=== PATIENT | male | born 1950 | race Caucasian/White ===

== ENCOUNTER 2016-12-17 09:43 | Outpatient (CLI) | payer MEDICARE, OTHER | END 2016-12-17 09:44 | disposition home or self-care (01) | DX: Z00.00 Encounter for general adult medical examination without abnormal findings (principal); R05 Cough; R76.11 Nonspecific reaction to tuberculin skin test without active tuberculosis; R07.89 Other chest pain ==

== ENCOUNTER 2016-12-31 12:34 | Outpatient (CLI) | payer MEDICARE, OTHER | END 2016-12-31 12:35 | disposition home or self-care (01) | DX: R06.00 Dyspnea, unspecified (principal) ==

== ENCOUNTER 2017-01-01 10:25 | Outpatient (CLI) | payer MEDICARE, OTHER ==
--- NOTE | 2017-01-01 14:26 | XRAY Report ---
TWO-VIEW CHEST: 01/01/2017 CLINICAL INDICATION: Dyspnea. FINDINGS: Frontal and lateral views of the chest are compared to previous frontal view of 07/02/2016 . The cardiac silhouette is within normal limits. The lungs are clear. No effusion or pneumothorax is present. IMPRESSION: NORMAL CHEST. JOB #: [id number] EXT JOB #:[id number]
== END 2017-01-01 10:26 | disposition home or self-care (01) ==
LOC: DI.S 10:25
PROVIDERS: ATTEND Internal Medicine
DX: R06.00 Dyspnea, unspecified (principal)
CPT/HCPCS: 71020

== ENCOUNTER 2017-01-21 13:20 | Outpatient (CLI) | payer MEDICARE, OTHER | END 2017-01-21 13:21 | disposition home or self-care (01) | LOC: RT 13:20 | PROVIDERS: ATTEND Internal Medicine | DX: R06.00 Dyspnea, unspecified (principal) | CPT/HCPCS: 94010; 94729 ==

== ENCOUNTER 2017-10-18 08:36 | Outpatient (CLI) | payer MEDICARE, OTHER ==
[2017-10-18 12:04] LABS: BASOPHILS # (AUTO) 0.1 10^3/uL (0.0-0.1); BASOPHILS % (AUTO) 0.9 %; EOSINOPHILS # (AUTO) 0.1 10^3/uL (0.0-0.7); EOSINOPHILS % (AUTO) 1.3 %; HGB - HEMOGLOBIN 14.2 g/dL (14.0-18.0); LYMPHOCYTES % (AUTO) 32.1 %; MEAN CORPUSCULAR HEMOGLOBIN 31.7 pg (27.0-31.0); MEAN CORPUSCULAR VOLUME 93.3 fL (80.0-94.0); MEAN PLATELET VOLUME 8.8 fL (7.4-11.4); MONOCYTES # (AUTO) 0.6 10^3/uL (0.0-1.0); MONOCYTES % (AUTO) 10.2 %; NEUTROPHILS # (AUTO) 3.4 10^3/uL (1.5-6.6); NEUTROPHILS % (AUTO) 55.5 %; PLT - PLATELET COUNT 262 10^3/uL (130-450); RED BLOOD COUNT 4.49 10^6/uL (4.70-6.10); RED CELL DISTRIBUTION WIDTH 13.2 % (12.0-15.0); WHITE BLOOD COUNT 6.1 x10^3/uL (4.8-10.8)
[2017-10-18 12:11] LABS: BUN - BLOOD UREA NITROGEN 21 mg/dL (6-20); CALCIUM 8.9 mg/dL (8.5-10.3); CARBON DIOXIDE - CO2 28 mmol/L (21-32); CHLORIDE 105 mmol/L (101-111); CHOL/HDL RATIO 3.6 (<5.0); CHOLESTEROL 173 mg/dL; CREATININE 0.9 mg/dL (0.6-1.2); GFR - MDRD 84 (>89); GLUCOSE 92 mg/dL (70-100); HDL CHOLESTEROL 48 mg/dL; LDL CHOLESTEROL,CALCULATED 113 mg/dL; LDL/HDL RATIO 2.4 (<3.6); SODIUM 140 mmol/L (135-145); VLDL CHOLESTEROL 12 mg/dL
[2017-10-19 14:53] LABS: HEPATITIS C ANTIBODY NON-REACTIVE (NON-REACTIVE)
== END 2017-10-18 08:37 | disposition home or self-care (01) ==
LOC: LAB.F 08:36
PROVIDERS: ATTEND Internal Medicine
DX: N40.1 Benign prostatic hyperplasia with lower urinary tract symptoms (principal); K21.9 Gastro-esophageal reflux disease without esophagitis; Z13.220 Encounter for screening for lipoid disorders; Z11.59 Encounter for screening for other viral diseases
CPT/HCPCS: 36415; 80048; 80061; 83721; 84153; 85025; 86803

== ENCOUNTER 2018-10-12 08:38 | Outpatient (CLI) | payer MEDICARE, OTHER ==
[2018-10-12 10:53] LABS: HGB - HEMOGLOBIN 13.8 g/dL (14.0-18.0); MEAN CORPUSCULAR HEMOGLOBIN 31.9 pg (27.0-31.0); MEAN CORPUSCULAR HGB CONC 34.1 g/dL (32.0-36.0); MEAN CORPUSCULAR VOLUME 93.4 fL (80.0-94.0); MEAN PLATELET VOLUME 8.7 fL (7.4-11.4); RED BLOOD COUNT 4.33 10^6/uL (4.70-6.10); RED CELL DISTRIBUTION WIDTH 13.1 % (12.0-15.0); WHITE BLOOD COUNT 7.3 x10^3/uL (4.8-10.8)
[2018-10-12 11:28] LABS: ALBUMIN 3.9 g/dL (3.2-5.5); ALBUMIN/GLOBULIN RATIO 1.4 (1.0-2.2); ALKALINE PHOSPHATASE 92 IU/L (42-121); ALT ALANINE AMINOTRANSFERASE 23 IU/L (10-60); AST ASPARTATE AMINOTRANSFERASE 23 IU/L (10-42); BILIRUBIN,TOTAL 1.1 mg/dL (0.2-1.0); BUN - BLOOD UREA NITROGEN 24 mg/dL (6-20); CALCIUM 8.7 mg/dL (8.5-10.3); CARBON DIOXIDE - CO2 26 mmol/L (21-32); CHLORIDE 105 mmol/L (101-111); CHOLESTEROL 167 mg/dL; CREATININE 0.7 mg/dL (0.6-1.2); GFR - MDRD 112 (>89); GLUCOSE 89 mg/dL (70-100); HDL CHOLESTEROL 55 mg/dL; LDL CHOLESTEROL,CALCULATED 92 mg/dL; LDL/HDL RATIO 1.7 (<3.6); SODIUM 138 mmol/L (135-145); TOTAL PROTEIN 6.6 g/dL (6.7-8.2); VLDL CHOLESTEROL 20 mg/dL
[2018-10-12 11:51] LABS: HEMOGLOBIN A1C 0.56 g/dL; HEMOGLOBIN A1C % 5.6 % (4.6-6.2)
== END 2018-10-12 08:39 | disposition home or self-care (01) ==
LOC: LAB.F 08:38
PROVIDERS: ATTEND Internal Medicine
DX: Z00.00 Encounter for general adult medical examination without abnormal findings (principal); N40.1 Benign prostatic hyperplasia with lower urinary tract symptoms; Z12.5 Encounter for screening for malignant neoplasm of prostate; N13.8 Other obstructive and reflux uropathy
CPT/HCPCS: 36415; 80053; 80061; 83036; 85027; G0103; 83721; 84153

== ENCOUNTER 2020-05-22 15:52 | Outpatient (CLI) | payer MEDICARE, OTHER ==
--- NOTE | 2020-05-22 16:15 | XRAY Report ---
PROCEDURE: Hand 2 View LT INDICATIONS: ABSCESS, HAND, LEFT TECHNIQUE: 2 views of the hand(s) acquired. COMPARISON: None FINDINGS: Bones: No fractures or dislocations. No suspicious bony lesions. Soft tissues: No suspicious soft tissue calcifications. IMPRESSION: No gas within the soft tissues is found, no foreign body or underlying osteomyelitis is seen. Degener ative change is noted to be moderately severe to severe at the base of the first metacarpal. Reviewed by: Beni Stephenson MD on 05/22/2020 4:14 PM PDT Approved by: Beni Stephenson MD on 05/22/2020 4:14 PM PDT Station ID: [id number]
== END 2020-05-22 15:53 | disposition home or self-care (01) ==
LOC: DI.S 15:52
PROVIDERS: ATTEND Internal Medicine
DX: M18.12 Unilateral primary osteoarthritis of first carpometacarpal joint, left hand (principal)

== ENCOUNTER 2020-11-13 08:05 | Outpatient (CLI) | payer MEDICARE, OTHER ==
[2020-11-13 14:29] LABS: BASOPHILS % (AUTO) 0.6 %; EOSINOPHILS # (AUTO) 0.1 10^3/uL (0.0-0.7); EOSINOPHILS % (AUTO) 1.8 %; HCT - HEMATOCRIT 41.6 % (42.0-52.0); LYMPHOCYTES # (AUTO) 2.3 10^3/uL (1.5-3.5); MEAN CORPUSCULAR HGB CONC 33.7 g/dL (32.0-36.0); MEAN CORPUSCULAR VOLUME 95.2 fL (80.0-94.0); MEAN PLATELET VOLUME 10.3 fL (7.4-11.4); MONOCYTES # (AUTO) 0.8 10^3/uL (0.0-1.0); MONOCYTES % (AUTO) 11.7 %; NEUTROPHILS # (AUTO) 3.9 10^3/uL (1.5-6.6); NEUTROPHILS % (AUTO) 53.6 %; PLT - PLATELET COUNT 270 10^3/uL (130-450); RED BLOOD COUNT 4.37 10^6/uL (4.70-6.10); RED CELL DISTRIBUTION WIDTH 12.4 % (12.0-15.0); WHITE BLOOD COUNT 7.2 x10^3/uL (4.8-10.8)
[2020-11-13 14:48] LABS: ALBUMIN 4.1 g/dL (3.2-5.5); ALBUMIN/GLOBULIN RATIO 1.4 (1.0-2.2); ALKALINE PHOSPHATASE 87 IU/L (42-121); ALT ALANINE AMINOTRANSFERASE 22 IU/L (10-60); AST ASPARTATE AMINOTRANSFERASE 21 IU/L (10-42); BUN - BLOOD UREA NITROGEN 19 mg/dL (6-20); CALCIUM 9.5 mg/dL (8.5-10.3); CARBON DIOXIDE - CO2 26 mmol/L (21-32); CHLORIDE 108 mmol/L (101-111); CHOL/HDL RATIO 3.8 (<5.0); CHOLESTEROL 184 mg/dL; CREATININE 0.8 mg/dL (0.6-1.2); GFR - MDRD 96 (>89); GLUCOSE 92 mg/dL (70-100); HDL CHOLESTEROL 49 mg/dL; LDL CHOLESTEROL,CALCULATED 120 mg/dL; LDL/HDL RATIO 2.4 (<3.6); POTASSIUM 3.8 mmol/L (3.5-5.0); SODIUM 142 mmol/L (135-145); TRIGLYCERIDES 75 mg/dL; VLDL CHOLESTEROL 15 mg/dL
== END 2020-11-13 08:06 | disposition home or self-care (01) ==
LOC: LAB.S 08:05
PROVIDERS: ATTEND Internal Medicine
DX: Z79.899 Other long term (current) drug therapy (principal); Z13.220 Encounter for screening for lipoid disorders; Z12.5 Encounter for screening for malignant neoplasm of prostate
CPT/HCPCS: 36415; 80053; 80061; 85025; G0103; 83721; 84153

== ENCOUNTER 2021-01-10 07:43 | Outpatient (CLI) | payer MEDICARE, OTHER ==
--- NOTE | 2021-01-10 09:15 | CARDIAC PROCEDURE NOTE ---
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 I auscultated his precordium. He has a 2/6 systolic murmur over the pulmonic area and a 2/6 systolic murmur at the apex. No Doppler was ordered with this Echo exam. Cardiac Risk Factors: Male gender, HTN, family Hx of CVAs. Type of Stress Test: ETT with Echocardiography Procedure: After signing informed consent, the patient underwent a Geoff-protocol treadmill stress test with Echocardiography imaging pre- and post- exercise. Resting heart rate: 60 Peak HR: 138 (91% predicted maximum heart rate for age). Resting blood pressure: 153/73 Peak BP: 192/72 The patient exercised for 6 minutes and 19 seconds on a Geoff-protocol treadmill stress test. He achieved a peak heart rate of 138 (91% p.m. HR), and 7.51 METS. The patient had no chest pain with exercise. The patient reported moderate shortness of breath. His oxygen saturation was 92% at the lowest during exercise and 98% at rest, on room air. The patient reported his perceived exertion at 17/20 at peak, on the Sherry scale. Resting EKG: Normal sinus rhythm, rate 60, left atrial and right atrial enlargement, somewhat vertical QRS axis. EKG at peak: Marked right axis deviation develops, rare PACs occurred with exercise and upsloping ST segment depressions are seen in leads II, III, aVF and V3 - V6. Summary: 1) Abnormal resting EKG. 2) Fair exercise tolerance and no oxygen desaturation with exercise. 3) Nonspecific EKG changes develop to suggest ischemia. 4) New right axis deviation develops on EKG with exertion (this suggests right heart overload). 5) Echo images were reported separately and showed: LVH, normal LV wall motion at rest with EF 70% and normal hyperdynamic function after stress, the RV is dilated, especially at the RV apex, with fairly preserved RV contractility. IMPRESSION: 1) Normal stress test with respect to coronary ischemia. 2) Abnormal findings of right heart overload, suggested by EKG changes and seen on Echo. 3) This patient's cardiac risk: Low-Moderate. RECOMMENDATIONS: 1) This patient should undergo an Echo with complete Doppler exam including bubble study to evaluate his murmur and his "hole in his heart". 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 2) Cardiology referral after having a complete Echo.
== END 2021-01-10 07:44 | disposition home or self-care (01) ==
LOC: DI 07:43
PROVIDERS: ATTEND Internal Medicine
DX: R06.02 Shortness of breath (principal); I51.7 Cardiomegaly
CPT/HCPCS: 93350

== ENCOUNTER 2021-12-02 11:42 | Outpatient (CLI) | payer MEDICARE, OTHER | END 2021-12-02 11:43 | disposition home or self-care (01) | LOC: LAB.S 11:42 | PROVIDERS: ATTEND Family Medicine | DX: R97.20 Elevated prostate specific antigen [PSA] (principal) | CPT/HCPCS: 36415; 84153 ==

== ENCOUNTER 2022-07-07 11:33 | Outpatient (CLI) | payer MEDICARE, OTHER | END 2022-07-07 11:34 | disposition home or self-care (01) | LOC: LAB.S 11:33 | PROVIDERS: ATTEND Urology | DX: R39.9 Unspecified symptoms and signs involving the genitourinary system (principal); Z87.898 Personal history of other specified conditions | CPT/HCPCS: 36415; 84153 ==

== ENCOUNTER 2023-03-04 08:13 | Outpatient (CLI) | payer MEDICARE, OTHER ==
[2023-03-04 15:13] LABS: BASOPHILS # (AUTO) 0.1 10^3/uL (0.0-0.1); BASOPHILS % (AUTO) 0.7 %; EOSINOPHILS # (AUTO) 0.1 10^3/uL (0.0-0.7); EOSINOPHILS % (AUTO) 1.7 %; HCT - HEMATOCRIT 41.2 % (42.0-52.0); HGB - HEMOGLOBIN 13.5 g/dL (14.0-18.0); LYMPHOCYTES # (AUTO) 2.7 10^3/uL (1.5-3.5); MEAN CORPUSCULAR HGB CONC 32.8 g/dL (32.0-36.0); MEAN CORPUSCULAR VOLUME 97.6 fL (80.0-94.0); MEAN PLATELET VOLUME 10.2 fL (7.4-11.4); MONOCYTES # (AUTO) 0.9 10^3/uL (0.0-1.0); MONOCYTES % (AUTO) 12.9 %; NEUTROPHILS # (AUTO) 3.3 10^3/uL (1.5-6.6); NEUTROPHILS % (AUTO) 46.4 %; PLT - PLATELET COUNT 261 10^3/uL (130-450); RED BLOOD COUNT 4.22 10^6/uL (4.70-6.10); RED CELL DISTRIBUTION WIDTH 13.1 % (12.0-15.0); WHITE BLOOD COUNT 7.2 x10^3/uL (4.8-10.8)
[2023-03-04 15:47] LABS: ALBUMIN 3.9 g/dL (3.2-5.5); ALBUMIN/GLOBULIN RATIO 1.3 (1.0-2.2); ALKALINE PHOSPHATASE 115 IU/L (42-121); ALT ALANINE AMINOTRANSFERASE 15 IU/L (10-60); AST ASPARTATE AMINOTRANSFERASE 17 IU/L (10-42); BILIRUBIN,TOTAL 0.5 mg/dL (0.2-1.0); BUN - BLOOD UREA NITROGEN 20 mg/dL (6-20); CALCIUM 9.2 mg/dL (8.5-10.3); CARBON DIOXIDE - CO2 28 mmol/L (21-32); CHLORIDE 109 mmol/L (101-111); CHOL/HDL RATIO 3.3 (<5.0); CHOLESTEROL 158 mg/dL; CREATININE 0.8 mg/dL (0.6-1.3); GFR - MDRD 95 (>89); GLUCOSE 97 mg/dL (74-104); HDL CHOLESTEROL 48 mg/dL; LDL CHOLESTEROL,CALCULATED 89 mg/dL; LDL/HDL RATIO 1.9 (<3.6); POTASSIUM 4.2 mmol/L (3.5-4.5); SODIUM 141 mmol/L (135-145); TRIGLYCERIDES 106 mg/dL (48-352); VLDL CHOLESTEROL 21 mg/dL
[2023-03-04 16:05] LABS: THYROID STIMULATING HORMONE 1.44 uIU/mL (0.34-5.60)
== END 2023-03-04 08:14 | disposition home or self-care (01) ==
LOC: LAB.S 08:13
PROVIDERS: ATTEND Registered Nurse
DX: R97.20 Elevated prostate specific antigen [PSA] (principal); Z79.899 Other long term (current) drug therapy; Z13.220 Encounter for screening for lipoid disorders; Z13.29 Encounter for screening for other suspected endocrine disorder; Z13.0 Encounter for screening for diseases of the blood and blood-forming organs and certain disorders involving the immune mechanism
CPT/HCPCS: 36415; 80053; 80061; 83721; 84153; 84443; 85025

== ENCOUNTER 2023-03-10 08:00 | Outpatient (CLI) | payer MEDICARE, OTHER ==
--- NOTE | 2023-03-11 16:57 | XRAY Report ---
PROCEDURE: Chest 2 View X-Ray INDICATIONS: COUGH TECHNIQUE: 2 views of the chest were acquired. COMPARISON: None. FINDINGS: Surgical changes and devices: None. Lungs and pleura: No pleural effusions or pneumothorax. Lungs are clear. Mediastinum: Mediastinal contours appear normal. Heart size is normal. Bones and chest wall: No suspicious bony lesions. Overlying soft tissues appear unremarkable. IMPRESSION: No acute cardiopulmonary process. Reviewed by: Isaac Cardenas on 03/11/2023 4:56 PM PDT Approved by: Isaac Cardenas on 03/11/2023 4:56 PM PDT Station ID: [id number]
== END 2023-03-10 23:59 | disposition home or self-care (01) ==
LOC: DI.S 08:00
PROVIDERS: ATTEND Internal Medicine
DX: R05.9 Cough, unspecified (principal)

== ENCOUNTER 2024-04-07 07:59 | Outpatient (CLI) | payer MEDICARE, OTHER ==
[2024-04-07 15:10] LABS: BASOPHILS % (AUTO) 0.5 %; EOSINOPHILS # (AUTO) 0.1 10^3/uL (0.0-0.7); EOSINOPHILS % (AUTO) 1.5 %; HGB - HEMOGLOBIN 13.4 g/dL (14.0-18.0); LYMPHOCYTES # (AUTO) 2.2 10^3/uL (1.5-3.5); LYMPHOCYTES % (AUTO) 35.6 %; MEAN CORPUSCULAR HEMOGLOBIN 32.2 pg (27.0-31.0); MEAN CORPUSCULAR HGB CONC 33.5 g/dL (32.0-36.0); MEAN CORPUSCULAR VOLUME 96.2 fL (80.0-94.0); MEAN PLATELET VOLUME 10.3 fL (7.4-11.4); MONOCYTES # (AUTO) 0.8 10^3/uL (0.0-1.0); MONOCYTES % (AUTO) 13.3 %; NEUTROPHILS % (AUTO) 48.9 %; PLT - PLATELET COUNT 280 10^3/uL (130-450); RED BLOOD COUNT 4.16 10^6/uL (4.70-6.10); RED CELL DISTRIBUTION WIDTH 12.5 % (12.0-15.0); WHITE BLOOD COUNT 6.2 x10^3/uL (4.8-10.8)
--- NOTE | 2024-04-07 15:39 | XRAY Report ---
PROCEDURE: Chest 2V INDICATIONS: COUGH TECHNIQUE: 2 views of the chest were acquired. COMPARISON: 03/10/2023 FINDINGS: Surgical changes and devices: None. Lungs and pleura: Mild blurring of the left heart border. No dense consolidation. No pleural effusio ns. Mediastinum: Normal heart size Bones and chest wall: Degenerative changes IMPRESSION: There is mild blurring of the left heart border, which could represent atelectasis or lingular early airspace disease. No dense consolidation or pleural effusion. Reviewed by: Gopla Durand MD on 04/07/2024 3:38 PM PDT Approved by: Gopal Durand MD on 04/07/2024 3:38 PM PDT Station ID: [id number]
[2024-04-07 16:06] LABS: THYROID STIMULATING HORMONE 0.97 uIU/mL (0.34-5.60)
[2024-04-07 16:48] LABS: ALBUMIN 3.8 g/dL (3.2-5.5); ALBUMIN/GLOBULIN RATIO 1.3 (1.0-2.2); ALKALINE PHOSPHATASE 113 IU/L (42-121); ALT ALANINE AMINOTRANSFERASE 15 IU/L (10-60); AST ASPARTATE AMINOTRANSFERASE 19 IU/L (10-42); BILIRUBIN,TOTAL 0.8 mg/dL (0.2-1.0); BUN - BLOOD UREA NITROGEN 19 mg/dL (6-20); CARBON DIOXIDE - CO2 26 mmol/L (21-32); CHLORIDE 106 mmol/L (101-111); CHOL/HDL RATIO 2.8 (<5.0); CHOLESTEROL 147 mg/dL; CREATININE 0.7 mg/dL (0.6-1.3); GFR - MDRD 111 (>89); GLUCOSE 96 mg/dL (74-104); HDL CHOLESTEROL 52 mg/dL; LDL CHOLESTEROL,CALCULATED 81 mg/dL; LDL/HDL RATIO 1.6 (<3.6); POTASSIUM 4.1 mmol/L (3.5-4.5); SODIUM 138 mmol/L (135-145); TOTAL PROTEIN 6.7 g/dL (6.4-8.9); TRIGLYCERIDES 68 mg/dL; VLDL CHOLESTEROL 14 mg/dL
== END 2024-04-07 08:00 | disposition home or self-care (01) ==
LOC: DI.S 07:59
PROVIDERS: ATTEND Registered Nurse
DX: R06.09 Other forms of dyspnea (principal); R05.9 Cough, unspecified; N40.1 Benign prostatic hyperplasia with lower urinary tract symptoms; Z13.228 Encounter for screening for other metabolic disorders; Z13.220 Encounter for screening for lipoid disorders; Z13.29 Encounter for screening for other suspected endocrine disorder; Z13.0 Encounter for screening for diseases of the blood and blood-forming organs and certain disorders involving the immune mechanism
CPT/HCPCS: 36415; 80053; 80061; 83721; 83880; 84153; 84443; 85025

== ENCOUNTER 2024-04-20 15:27 | Outpatient (CLI) | payer MEDICARE, OTHER ==
--- NOTE | 2024-04-20 23:50 | CT Report ---
PROCEDURE: Chest WO INDICATIONS: ABN CHEST SOUNDS TECHNIQUE: A CT scan of the chest was performed. Intravenous contrast media was not administered. Images were re corded and evaluated at appropriate window settings. Reformats: axial MIP of the chest, coronal and s agittal. For radiation dose reduction, the following was used: automated exposure control, adjustment of mA and/or kV according to patient size. COMPARISON: Chest radiograph dated 04/07/[address] chest dated 06/26/2014 FINDINGS: Image quality: Diagnostic. Chest wall and lower neck: No thyroid nodule which requires sonographic follow up. No axillary or sup raclavicular adenopathy by size. Mild left gynecomastia. Lungs and pleura: No consolidation. No pleural effusions. No pneumothorax. No suspicious pulmonary n odules which require follow up. There is subpleural reticular opacities predominantly noted in the b ilateral lung bases. No honeycombing. No definite distal bronchiectasis. No septal thickening or nodu larity. Airways appear clear. Intrafissural lymph node noted in the anterior aspect of the right oz r fissure seen on coronal image 48/series 6 and axial image 67/series 4. Mediastinum: Heart size is mildly enlarged. No pericardial effusion. No large vessel abnormality. Aor tic arch vascular calcifications. No mediastinal adenopathy by size criteria. Multivessel coronary a rtery atherosclerotic calcifications. Bones: No aggressive osseous abnormality. No acute compression fractures. Multilevel thoracic spondyl osis. Upper Abdomen: Unremarkable. IMPRESSION: CT chest without acute cardiopulmonary abnormalities. Mild-moderate subpleural reticular opacities/scarring without evidence for significant fibrosis. Fin dings may represent sequela of chronic interstitial lung disease. Moderate atherosclerotic vascular disease. Borderline cardiomegaly. Reviewed by: Maurizio Sen MD on 04/20/2024 10:49 PM [email or web address] Approved by: Maurizio Sen MD on 04/20/2024 10:49 PM AKDT Station ID: [id number]
== END 2024-04-20 15:28 | disposition home or self-care (01) ==
LOC: DI 15:27
PROVIDERS: ATTEND Registered Nurse
DX: R91.8 Other nonspecific abnormal finding of lung field (principal); I25.10 Atherosclerotic heart disease of native coronary artery without angina pectoris; I51.7 Cardiomegaly